=== PATIENT | male | born 1960 | race Caucasian/White ===

== ENCOUNTER 2022-11-09 08:05 | Outpatient (CLI) | payer OTHER, SELFPAY | END 2022-11-09 08:06 | disposition home or self-care (01) | LOC: NFLDREF 11-10 08:46 | PROVIDERS: PCP Internal Medicine; Referring Provider Internal Medicine; Visit Provider Internal Medicine | DX: Z13.6 Encounter for screening for cardiovascular disorders (principal); Z12.5 Encounter for screening for malignant neoplasm of prostate; Z13.9 Encounter for screening, unspecified | CPT/HCPCS: 80053; 80061; 84153 ==

== ENCOUNTER 2023-11-15 08:18 | Outpatient (CLI) | payer OTHER, SELFPAY | END 2023-11-15 08:19 | disposition home or self-care (01) | PROVIDERS: PCP Internal Medicine; Visit Provider Internal Medicine | DX: E78.5 Hyperlipidemia, unspecified (principal); Z13.228 Encounter for screening for other metabolic disorders; Z12.5 Encounter for screening for malignant neoplasm of prostate | CPT/HCPCS: 80053; 80061; G0103 ==

== ENCOUNTER 2024-05-29 07:04 | Outpatient (CLI) | payer OTHER, SELFPAY ==
--- NOTE | 2024-05-29 08:46 | P.ANES_ITS ---
Anesthesia Charges Start Date/Time Anesthesia Start Date: 05/29/24 Anesthesia Start Time: 08:09 Stop Date/Time Anesthesia Stop Date: 05/29/24 Anesthesia Stop Time: 08:39 Coding CPT Codes CPT Codes: ANES LWR INTST NDSC NOS - [id number] ([id number]) QX - BEAM PRESS OPERATOR SVC W/ MD MED DIRECTION, QK - CLOTH LAMINATING SUPERVISOR 2-4 CNCRNT ANES PROC, P2 - PATIENT W/MILD SYST DISEASE
--- NOTE | 2024-05-29 08:46 | W.ANESCHARGE ---
Anesthesia Charges Start Date/Time Anesthesia Start Date: 05/29/24 Anesthesia Start Time: 08:09 Stop Date/Time Anesthesia Stop Date: 05/29/24 Anesthesia Stop Time: 08:39 Coding CPT Codes CPT Codes: ANES LWR INTST NDSC NOS - [id number] ([id number]) QX - FABRICATION TECHNICIAN SVC W/ MD MED DIRECTION, QK - HOOP RIVETER 2-4 CNCRNT ANES PROC, P2 - PATIENT W/MILD SYST DISEASE
--- NOTE | 2024-05-29 09:00 | P.ANES_ITS ---
Anesthesia Charges Start Date/Time Anesthesia Start Date: 05/29/24 Anesthesia Start Time: 08:09 Stop Date/Time Anesthesia Stop Date: 05/29/24 Anesthesia Stop Time: 08:39 Coding CPT Codes CPT Codes: MAU LWR INTST NDSC NOS - [id number] ([id number]) QK - PROCESS IMPROVEMENT MANAGER 2-4 CNCRNT MAU PROC, QX - VENDOR QUALITY SUPERVISOR SVC W/ MD MED DIRECTION, P2 - PATIENT W/MILD SYST DISEASE
--- NOTE | 2024-05-29 09:00 | W.ANESCHARGE ---
Anesthesia Charges Start Date/Time Anesthesia Start Date: 05/29/24 Anesthesia Start Time: 08:09 Stop Date/Time Anesthesia Stop Date: 05/29/24 Anesthesia Stop Time: 08:39 Coding CPT Codes CPT Codes: MAU LWR INTST NDSC NOS - [id number] ([id number]) QK - SEED DISTRICT SALES MANAGER 2-4 CNCRNT AMU PROC, QX - MARKET SUPERINTENDENT SVC W/ MD MED DIRECTION, P2 - PATIENT W/MILD SYST DISEASE
== END 2024-05-29 07:05 | disposition home or self-care (01) ==
LOC: OP CLINIC 07:06
PROVIDERS: PCP Internal Medicine; Visit Provider Surgery
DX: Z12.11 Encounter for screening for malignant neoplasm of colon (principal); D12.0 Benign neoplasm of cecum; D13.0 Benign neoplasm of esophagus; D12.4 Benign neoplasm of descending colon; Z86.0100 Personal history of colon polyps, unspecified
CPT/HCPCS: 00811; 45385; 88305; J2704

== ENCOUNTER 2024-11-06 08:00 | Outpatient (CLI) | payer OTHER, SELFPAY | END 2024-11-06 08:01 | disposition home or self-care (01) | LOC: NFLDREF 11-08 12:48 | PROVIDERS: PCP Internal Medicine; Referring Provider Internal Medicine; Visit Provider Internal Medicine | DX: Z00.00 Encounter for general adult medical examination without abnormal findings (principal); Z13.228 Encounter for screening for other metabolic disorders; Z13.6 Encounter for screening for cardiovascular disorders; Z12.5 Encounter for screening for malignant neoplasm of prostate | CPT/HCPCS: 80053; 80061; G0103 ==